=== PATIENT | male | born 2005 | race Caucasian/White ===

== ENCOUNTER 2025-10-29 17:57 | Emergency (ER) | payer SELFPAY ==
[~2025-10-29] VITALS: Ht 175.3 cm; Wt 82.0 kg
[2025-10-29 18:09] VITALS: O2SAT 100
[2025-10-29 18:59] VITALS: BP 111/55; PULSE 88; RESP 15; TEMP 36.7; O2SAT 99
[2025-10-29] MEDS ORDERED: ACET-2708 MT (18:59)
== END 2025-10-29 19:01 | disposition home or self-care (01) ==
LOC: ER 17:57
DX: B34.9 Viral infection, unspecified (principal); Z90.49 Acquired absence of other specified parts of digestive tract
CPT/HCPCS: 99282